=== PATIENT | male | born 1965 | race Caucasian/White ===

== ENCOUNTER 2023-07-25 06:45 | Day surgery (SDC) | payer OTHER ==
[~2023-07-25] VITALS: Ht 180.3 cm; Wt 86.6 kg
[~2023-07-25 06:45] MED LIST: ATOR80TA PO; EZET10TA22 PO; GABA-339 PO; GLIP5TAB12 PO; INSLANTI SC; ISOS60TA24 PO; METF-370 PO; METO-6 PO; OMEP20TA PO; PRAS10TA19 PO
[2023-07-25] MEDS ORDERED: IODIXANOL 320MG/ML 100ML BTL IV ONE (07:46)
[2023-07-25] MEDS ORDERED: LIDOCAINE 2%HCL (LOCAL ANESTH.) INJ 20ML MDV ONE (07:46)
[2023-07-25] MEDS ORDERED: fentaNYL CITRATE 100 MCG/2 ML VL ONE (08:18)
[2023-07-25] MEDS ORDERED: MIDAZOLAM HCL 2MG/2ML 2ml VIAL (1mg/ml) ONE (08:18)
[2023-07-25] MEDS ORDERED: SODIUM CHL 0.9% 0 ML ONE (08:21)
[2023-07-25] MEDS ORDERED: ANGIOMAX 250 MG VIAL IV ONE (08:21)
== END 2023-07-25 11:20 | disposition home or self-care (01) ==
LOC: CATH 06:45
PROVIDERS: ATTEND Internal Medicine Cardiovascular Disease
DX: I25.10 Atherosclerotic heart disease of native coronary artery without angina pectoris (principal); I25.82 Chronic total occlusion of coronary artery; I25.5 Ischemic cardiomyopathy; I50.9 Heart failure, unspecified; E11.9 Type 2 diabetes mellitus without complications; I11.0 Hypertensive heart disease with heart failure; E78.5 Hyperlipidemia, unspecified; Z95.1 Presence of aortocoronary bypass graft; Z95.0 Presence of cardiac pacemaker
CPT/HCPCS: 71045; 93005; 93459; C1760; C1769; C1894; J1644; J2250; J3010; Q9967; 99152